=== PATIENT | male | born 1975 | race Caucasian/White ===

== ENCOUNTER 2019-04-05 18:25 | Emergency (ER) | payer OTHER, SELFPAY ==
--- NOTE | 2019-04-05 18:33 | ED.GENADULT ---
HPI - General Adult General Chief complaint: Wound/Laceration Stated complaint: right 3rd finger injury Time Seen by Provider: 04/05/19 18:50 Source: patient and RN notes reviewed Mode of arrival: ambulatory Limitations: no limitations History of Present Illness HPI narrative: This patient was at his home this evening in his garage he was using a hammer to drive a metal anchor into the cement floor. He accidentally hit the right middle finger with a hammer causing a skin laceration on the palmar distal aspect of the right middle finger. He is right-handed. Did not injure the nail. He did not injure any other body areas. Got small superficial skin avulsion on the dorsal aspect of the right ring finger ulnar aspect. He has no numbness or tingling sensation in the finger. He otherwise has been feeling well. Is been able to flex and extend the finger completely. He has not had any ear pain, no nasal drainage, no sore throat, no fever, no cough. He has had no nausea, no vomiting, no diarrhea. He has had no hematuria, no dysuria, no pyuria. He has had no rashes. His last tetanus immunization was between 12 to 2 years ago. He was given when he had an injury at that time. This is per his statements today. Related Data Home Medications Medication Instructions Recorded Confirmed No Home Medications 04/05/19 04/05/19 Allergies Allergy/AdvReac Type Severity Reaction Status Date / Time No Known Allergies Allergy Verified 04/05/19 18:48 Review of Systems Review of Systems: Narrative: CONSTITUTIONAL: Denies fever, chills, or sweats. Noncontributory except as pertains the past medical history and history of present illness. EYES: Denies visual changes, redness, or discharge. ENT: Denies rhinorrhea, congestion, sore throat, or otalgia. CARDIOVASCULAR: Denies chest pain, palpitations, or edema. RESPIRATORY: Denies cough or dyspnea. GASTROINTESTINAL: Denies abdominal pain, nausea, vomiting, or diarrhea. GENITOURINARY: Denies dysuria or hematuria. SKIN: Denies rash or itching. MUSCULOSKELETAL: Denies back pain, joint pain, or myalgia. NEUROLOGIC: Denies headache, numbness, or weakness. PSYCHIATRIC: Denies anxiety or depression. [facility] Social History Social History Gender identity (if verbalized by the patient): Male Comments At time of signature, I have reviewed and agree with nursing past medical, surgical, social, and family history.Please see nursing chart for further information. There is no relevant family history pertinent to the presenting complaint. Exam Narrative: Exam Narrative: GENERAL: Well-appearing, well-nourished, and in no acute distress. HEAD: Normocephalic, atraumatic. EYES: PERRLA and EOMI. EARS: TM's clear bilaterally and the canals are clear. NOSE: Nares clear, no rhinorrhea or epistaxis. THROAT:Mucous membranes moist.Oropharynx normal without erythema exudates. NECK: Supple. No adenopathy of the neck, supraclavicular, axillary, or inguinal areas. RESPIRATORY:No respiratory distress. Airway patent. Respirations non-labored. Clear to auscultation. There are no wheezes, no rales, no retractions, no use accessory muscle respirations. Patient is not cyanotic and not dyspneic HEART: Regular rate and rhythm. No murmur heard. Normal peripheral pulses. ABDOMEN: Soft, nontender, nondistended, normal active bowel sounds.No masses. No rebound or guarding, No organomegaly. There is no CVA pain. No pain McBurney's point. He has a negative Barksdale sign and negative Rovsing sign. There are no pulsatile masses or audible bruits. EXTREMITIES: No clubbing/cyanosis/ edema. Normal strength & range of motion. The extremity exam is normal except for the right hand right middle finger where he has a 3.0 cm curved laceration over the palmar distal aspect of the right middle finger which extends through the skin tissue and reveals the adipose tissue beneath but does not go deeper. The patient also has a 5 mm superficial flap sk
[2019-04-05 18:36] VITALS: BP 137/79; PULSE 97; RESP 18; TEMP 37.1; O2SAT 98
== END 2019-04-05 19:32 | disposition home or self-care (01) ==
PROVIDERS: Emergency Provider Family Medicine
DX: S61.212A Laceration without foreign body of right middle finger without damage to nail, initial encounter (principal); W27.0XXA Contact with workbench tool, initial encounter
CPT/HCPCS: 12001; 99202; G0463